=== PATIENT | male | born 1950 | race Two or more races ===

== ENCOUNTER 2018-02-17 14:41 | Outpatient (CLI) | payer OTHER | END 2018-02-17 14:53 | disposition home or self-care (01) | LOC: RAD 14:41 | DX: C18.7 Malignant neoplasm of sigmoid colon (principal); R59.0 Localized enlarged lymph nodes ==

== ENCOUNTER 2018-02-24 08:45 | Inpatient (IN) | payer OTHER ==
[~2018-02-24] VITALS: Ht 172.7 cm; Wt 93.4 kg
[2018-03-03] MEDS ORDERED: LEVSIN/SL0.125 MG PO (11:54)
[2018-03-03] MEDS ORDERED: PERCOCET 5-3251 EACH PO (11:54)
== END 2018-03-03 13:23 | disposition home or self-care (01) | DRG 331 ==
LOC: SURH 02-28 07:37 → O/R 02-28 07:37 → SURH 02-28 08:45
PROVIDERS: Surgery
PROC: 07TC4ZZ Resection of Pelvis Lymphatic, Percutaneous Endoscopic Approach (ICD-10-PCS; 2018-02-28)
PROC: 0DJD8ZZ Inspection of Lower Intestinal Tract, Via Natural or Artificial Opening Endoscopic (ICD-10-PCS; 2018-02-28)
PROC: 4A1BXSH Monitoring of Gastrointestinal Vascular Perfusion using Indocyanine Green Dye, External Approach (ICD-10-PCS; 2018-02-28)
PROC: 4A033R1 Measurement of Arterial Saturation, Peripheral, Percutaneous Approach (ICD-10-PCS; 2018-02-28)
PROC: 4A12X4Z Monitoring of Cardiac Electrical Activity, External Approach (ICD-10-PCS; 2018-02-28)
PROC: 0DTN4ZZ Resection of Sigmoid Colon, Percutaneous Endoscopic Approach (ICD-10-PCS; principal; 2018-02-28 13:45)
PROC: 3E0F7GC Introduction of Other Therapeutic Substance into Respiratory Tract, Via Natural or Artificial Opening (ICD-10-PCS; 2018-03-01)
DX: C19 Malignant neoplasm of rectosigmoid junction (principal); J45.20 Mild intermittent asthma, uncomplicated; G47.33 Obstructive sleep apnea (adult) (pediatric); R73.01 Impaired fasting glucose

== ENCOUNTER 2018-02-25 08:15 | Outpatient (CLI) | payer OTHER | END 2018-02-25 09:00 | disposition home or self-care (01) | LOC: NUCLEAR 08:15 | DX: C18.7 Malignant neoplasm of sigmoid colon (principal); R59.0 Localized enlarged lymph nodes | CPT/HCPCS: A9552; 78816 ==

== ENCOUNTER 2019-03-02 05:56 | Day surgery (SDC) | payer OTHER ==
[~2019-03-02 05:56] MED LIST: LEVSIN/SL0.125 MG PO; PERCOCET 5-3251 EACH PO
== END 2019-03-02 09:15 | disposition home or self-care (01) ==
LOC: AMB-ENDOS 05:56
DX: D12.4 Benign neoplasm of descending colon (principal); K62.1 Rectal polyp

== ENCOUNTER 2020-03-27 08:47 | Outpatient (CLI) | payer OTHER | END 2020-03-27 09:08 | disposition home or self-care (01) | LOC: NUCLEAR 08:47 | PROVIDERS: ATTEND Internal Medicine Hematology & Oncology | DX: C18.7 Malignant neoplasm of sigmoid colon (principal) | CPT/HCPCS: 78816; A9552 ==

== ENCOUNTER 2020-04-04 07:57 | Outpatient (CLI) | payer OTHER | END 2020-04-04 08:15 | disposition home or self-care (01) | LOC: NUCLEAR 07:57 | PROVIDERS: ATTEND Neurological Surgery | DX: G45.8 Other transient cerebral ischemic attacks and related syndromes (principal); R94.31 Abnormal electrocardiogram [ECG] [EKG] ==

== ENCOUNTER 2020-05-09 05:46 | Day surgery (SDC) | payer OTHER | END 2020-05-09 10:45 | disposition home or self-care (01) | LOC: AMB-ENDOS 05:46 | PROVIDERS: ATTEND Surgery | DX: K62.1 Rectal polyp (principal) ==

== ENCOUNTER 2021-02-20 07:59 | Outpatient (CLI) | payer OTHER | END 2021-02-20 08:00 | disposition home or self-care (01) | LOC: TOM 07:59 | PROVIDERS: ATTEND Internal Medicine Hematology & Oncology | DX: K80.80 Other cholelithiasis without obstruction (principal); Q61.01 Congenital single renal cyst ==

== ENCOUNTER 2021-12-13 14:31 | Outpatient (CLI) | payer OTHER | END 2021-12-13 14:40 | disposition home or self-care (01) | LOC: LAB 14:31 | DX: Z20.822 Contact with and (suspected) exposure to COVID-19 (principal) ==

== ENCOUNTER 2021-12-16 07:10 | Outpatient (CLI) | payer OTHER | END 2021-12-17 07:54 | disposition home or self-care (01) | LOC: TOM 07:10 | PROVIDERS: ATTEND Internal Medicine Hematology & Oncology | DX: C18.9 Malignant neoplasm of colon, unspecified (principal) ==

== ENCOUNTER 2023-03-12 08:17 | Outpatient (CLI) | payer OTHER | END 2023-03-12 08:23 | disposition home or self-care (01) | LOC: TOM 08:17 | PROVIDERS: ATTEND Internal Medicine | DX: C18.7 Malignant neoplasm of sigmoid colon (principal) ==